=== PATIENT | male | born 1955 | race Caucasian/White ===

== ENCOUNTER → 2018-09-29 | Day surgery (SDC) | payer OTHER ==
[~2018-09-29] VITALS: Ht 162.6 cm; Wt 82.9 kg
[2018-09-29] VITALS (24 sets, daily range): BP systolic 108–145; BP diastolic 66–85; PULSE 48–99; RESP 11–19; Ht 162.6 cm; Wt 82.9 kg
[~2018-09-29] MED LIST: ACETAMINOPHEN 325 MG TAB PO PRN; AL HYDROX/MG HYDROX/SIMETH 30 ML CUP PO PRN; ATOR40TA68 PO; BISO5TAB21 ORAL; DIAZEPAM 5 MG TAB PO ONE; DIPHENHYDRAMINE 50 MG CAP PO ONE; FAMOTIDINE 20 MG TAB PO ONE; FENO48TA4 PO; FENO54TA ORAL; FENTAnyl 50 MCG/ML VIAL ONE; HEPARIN 1000 UNITS/ML 10 ML INJ ONE; IODIXANOL LOCM 100 ML BTL ONE; LIDOCAINE 1% (MDV) 20 ML INJ ONE; LOSA50TA14 PO; MIDAZOLAM 1 MG/ML 2 ML INJ ONE; NITROGLYCERIN (IC) 100 MCG/ML INJ ONE; ONDANSETRON 4 MG INJ IV PRN; SOD CHLORIDE 0.45% 1,000 ML IV ONE; SOD CHLORIDE 0.9% 1,000 ML IV SCH; VERAPAMIL 5 MG INJ ONE; morphine 2 MG INJ IV PRN
--- NOTE | 2018-09-29 10:25 | SIPON ---
Date/Time of Note Date/Time of Note DATE: 09/29/18 TIME: 10:23 Operative Report Preoperative Diagnosis 1.Chest pain 2.abnl mpi Postoperative Diagnosis 1.3 vd chenega cad. Patent SVG x 2 RCA/LCX, Patent BURNS-LAD, occluded SVG? 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
--- NOTE | 2018-09-29 12:03 | CARRPT ---
DATE OF PROCEDURE: 09/29/2018 TYPE OF PROCEDURES: 1. Left heart catheterization. 2. Coronary angiography. 3. Bypass graft angiography including BURNS arterial graft. 4. Left ventriculogram. 5. Aortic root angiography. ATTENDING PHYSICIAN: Sabrina Resendez MD REFERRING PHYSICIAN: Marcos Jain MD INDICATION: Chest pain, shortness of breath with positive stress test findings for ischemia. BRIEF HISTORY: Mr. Manuel is a 63-year-old male with a history of hypertension, dyslipidemia, cor onary artery disease, status post coronary artery bypass graft surgery 2009 in [facility], who presented with complaints of substernal chest pain. He underwent a cardiac stress test revealing EF of 51% wi th reversible defect in anterior and septal harris. Given these findings, the patient has been referr ed for and presents today in order to undergo left heart catheterization to assess possibility of sig nificant obstructive coronary artery disease lending to symptoms of chest pain and positive stress te st findings. DESCRIPTION OF PROCEDURE: After informed consent was obtained, the patient was brought to the [facility] cardiac catheterization lab where his right femoral artery was prepped and alize ped in sterile fashion. A 2% lidocaine was infiltrated into right femoral artery in order to achieve adequate anesthesia. Using the modified Seldinger technique, the right artery was cannulated and a 6-[place]gent[place] arterial sheath was placed. A 6-[place]gent[place] JL4 was used to cannulate the left main coronary ost ium. With contrast injection, multiple views of the left coronary arterial system were obtained. JL 4 was removed with a guidewire and a JR4 was used to cannulate the right coronary arterial ostium. W ith contrast injection, multiple views of the right coronary arterial system were obtained. JR4 was then used to additionally cannulate the subclavian and BURNS arterial graft; after which with contrast injection, multiple views of this graft were obtained. This was removed and an LCB was then used to subsequently cannulate the saphenous graft to right coronary artery and then stump of graft of unkno wn significance probably presumed to diagonal. Subsequently, the LCB was removed. A 6-Argentine pigtai l was passed up the descending aorta down the ascending aorta placed in the LV. LVEDP was measured. A 20 mL of contrast were injected and pulled back across the aortic valve to assess for significant gradient, which there was not and then left in the aortic root. Aortic root angiography was undertak en with power injector and subsequent catheter was removed. Final angiographic image of the right fe moral arterial insertion site was then obtained and the sheath to be well placed in the right common femoral artery. Subsequently, a 6-[place] Perclose device was used to seal the vessel. This complete d the procedure. There were no noted complications. FINDINGS: Coronary angiography: Left main proximally is a 4 mm vessel and its distal portion has a 50% stenosis, then there is the takeoff of the LAD and circumflex, each approximately 2 mm each and t hen becomes 100% occluded shortly after takeoff. The right coronary artery proximally is a 3.5 mm ve ssel and shortly after takeoff is 100% occluded. The bypass graft angiography revealed the patient t o have widely patent saphenous graft supplying obtuse marginal with no intervening stenoses. The RUIZ A arterial graft supplying a reasonable sized distal LAD is also a good sized vessel with no interven ing stenoses and no stenosis in the LAD. Subclavian itself has no significant stenoses. The sapheno us vein graft supplying the right coronary artery is a widely patent vessel that appears to just betw een the PDA and the posterolateral branch with no intervening stenoses. Left ventriculogram revealed a left ventricular ejection fraction of approximately 45% with mild ante rolateral and apical hypokinesis. LVEDP of 16. No significant aortic stenosis by gradient. Aortic root angiography revealed the patient's [place] left and right coronary arteries and saphenous vein graft to the right can be visualized. It is somewhat difficult to visualize the saphenous graft that supplies to obtuse marginal. No other grafts were seen. TOTAL FLUOROSCOPY TIME: 8.7 minutes. TOTAL CONTRAST: 150 mL. IMPRESSION: 1. Multivessel obstructive [place] coronary artery disease. 2. Widely patent saphenous vein graft supplying the right coronary artery and circumflex distributio n. 3. Widely patent left internal mammary artery arterial graft supplying reasonable sized distal left anterior descending. 4. Mildly depressed left ventricular systolic function with wall motion abnormalities as above. 5. High normal left heart filling pressures. 6. No significant aortic stenosis or gradient. 7. A 1+ mitral regurgitation. RECOMMENDATIONS: In light of procedure findings at this time, we would: 1. Maximize medical management. 2. Aggressive secondary risk factor reduction. 3. The patient will be readmitted to the same day surgery center for post-catheterization observatio n and continued management of symptoms with probable discharge later this afternoon. Dictated By: SABRINA BARTLETT/SHO Conf#: [id number] DID#: [id number]
== END | disposition home or self-care (01) ==
LOC: SDS 07:17
PROVIDERS: ATTEND Internal Medicine
DX: I25.10 Atherosclerotic heart disease of native coronary artery without angina pectoris (principal); I10 Essential (primary) hypertension; E78.5 Hyperlipidemia, unspecified; E78.00 Pure hypercholesterolemia, unspecified
CPT/HCPCS: 71045; 80048; 80061; 85025; 85610; 85730; 93005; 93459; C1760; C1887; J1644; J2250; J3010; Q9967